=== PATIENT | male | born 1970 | race Caucasian/White ===

== ENCOUNTER 2018-10-19 21:14 | Emergency (ER) | payer SELFPAY ==
[2018-10-19] MEDS ORDERED: NS 0.9% 1000 ML* 1,000 ML IV ONE (22:03)
[2018-10-19] MEDS ORDERED: Aspirin 81 mg CHEW TAB* 81 MG TAB.CHEW PO ONE (22:03)
[2018-10-19] MEDS ORDERED: Famotidine TAB* 20 MG PO ONE (22:04)
--- NOTE | 2018-10-19 22:19 | ED ---
HPI Chest Pain - HPI Summary HPI Summary: Pt is a 48 y/o male who presents to the ED c/o chest pressure. He states the symptoms began at 12:00 today. Pt started with right-sided chest pressure, which then moved to the left. He now c/o sub-sternal chest pressure, rated a 5/ 10 in severity. Pt describes the sensation as if someone punched him in the chest. The pain is made better by ice and walking, and made worse by deep breaths. He also had some SOB and anxiety today, and notes that his right hand has been numb for the past few weeks. Pt smoked marijuana and had 2 beers [employer]. He took 2 Ibuprofen pills [employer], but denies taking ASA. He also notes he used ecstasy a few days ago. Pt denies any hx of DM, HTN, or HLD. Pts father had a CABG at 45 years old. - History of Current Complaint Chief Complaint: EDChestWallPain Time Seen by Provider: 10/19/18 21:53 Hx Obtained From: Patient Onset/Duration: Started Hours Ago - 12:00, Still Present Timing: Constant Current Severity: Moderate Pain Intensity: 5 Pain Scale Used: 0-10 Numeric Chest Pain Location: Mid Sternal Chest Pain Radiates: No Character: Pressure/Squeezing Aggravating Factor(s): Deep Breaths Alleviating Factor(s): Other: - Ice, walking Associated Signs and Symptoms: Positive: Anxiety, Shortness of Breath - Allergy/Home Medications Allergies/Adverse Reactions: Allergies Allergy/AdvReac Type Severity Reaction Status Date / Time shellfish derived Allergy Airway Verified 10/19/18 21:28 Obstruction PMH/Surg Hx/FS Hx/Imm Hx Endocrine/Hematology History: Denies: Hx Diabetes Cardiovascular History: Denies: Hx Hypercholesterolemia, Hx Hypertension Respiratory History: Reports: Hx Asthma Infectious Disease History: No Infectious Disease History: Denies: Traveled Outside the [place] in Last 30 Days - Family History Known Family History: Positive: Cardiac Disease - [place] - Social History Alcohol Use: Daily Alcohol Amount: 3-6 beers daily Hx Substance Use: Yes Substance Use Type: Reports: Marijuana Substance Use Comment - Amount & Last Used: psychedelics, ecstacy Hx Tobacco Use: Yes Smoking Status (MU): Former Smoker Review of Systems Positive: Chest Pain - pressure Positive: Shortness Of Breath Positive: Numbness - fingers Positive: Anxious All Other Systems Reviewed And Are Negative: Yes Physical Exam - Summary Physical Exam Summary: Appearance: Well appearing, no pain distress Skin: warm, dry, reflects adequate perfusion Head/face: normal Eyes: EOMI, PRABHA ENT: mucous membranes moist Neck: supple, non-tender Respiratory: CTA, breath sounds present Cardiovascular: RRR, pulses symmetrical Abdomen: non-tender, soft Bowel Sounds: present Musculoskeletal: normal, strength/ROM intact Neuro: normal, sensory motor intact, A&Ox3 Triage Information Reviewed: Yes Vital Signs On Initial Exam: Initial Vitals Temp Pulse Resp BP Pulse Ox 99.2 F 110 18 100/68 98 10/19/18 21:27 10/19/18 21:27 10/19/18 21:27 10/19/18 21:27 10/19/18 21:27 Vital Signs Reviewed: Yes Diagnostics - Vital Signs Vital Signs Temp Pulse Resp BP Pulse Ox 10/19/18 21:45 73 95 10/19/18 21:27 99.2 F 110 18 100/68 98 - Laboratory Result Diagrams: 10/19/18 22:08 10/19/18 22:08 Lab Statement: Any lab studies that have been ordered have been reviewed, and results considered in the medical decision making process. - Radiology CXR Radiology Interpretation Completed By: ED Physician Summary of Radiographic Findings: No acute findings. Pending official radiology report. - EKG 21:18 Cardiac Rate: NL - 88 bpm EKG Rhythm: Sinus Rhythm ST Segment: Normal Summary of EKG Findings: Nl axis, nl intervals Re-Evaluation - Re-Evaluation First Eval Re-Evaluation Time: 23:17 Change: Unchanged Comment: Pt feels the same. He feels anxious and requests Ativan. Chest Pain Course/Dx - Course Course Of Treatment: Nurse's notes reviewed. Patient with very atypical sounding chest pain and no particular risk factors for cardiac disease. EKG and troponin 2 was negative. Heart scores a 0. A d-dimer is nondetectable. He was treated with Toradol and Ativan finally which caused his symptoms to improve. He returns to [place] tomorrow by train and will follow-up with his primary care physician. - Chest Pain Differential Diagnosis/HQI/PQRI: Acute [place], ACS, CHF, Chest Wall, GI Disease, Pulmonary Embolism - Diagnoses Provider Diagnoses: Atypical chest pain, Cervical radiculopathy Discharge - Sign-Out/Discharge Documenting (check all that apply): Patient Departure - Discharge - Discharge Plan Condition: Improved Disposition: HOME Prescriptions: Cyclobenzaprine (NF) [Cyclobenzaprine 5 MG (NF)] 5 mg PO TID PRN #10 tab PRN Reason: muscle pains predniSONE TAB* [Deltasone TAB*] 50 mg PO DAILY #4 tab Patient Education Materials: Chest Pain (ED), Cervical Radiculopathy (ED) Referrals: [facility] [Outside] Additional Instructions: Follow up with your doctor on return to [place] tomorrow. Take a baby aspirin daily. You may need to have a stress test. Return with persistent symptoms, difficulty breathing, worse, new symptoms or other concerns. - Billing Disposition and Condition Condition: IMPROVED Disposition: Home - Attestation Statements Document Initiated by Juan: Yes Documenting Scribe: Joann Rothman Provider For Whom Juan is Documenting (Include Credential): Brando Vick MD Scribe Attestation: Joann Sargent scribed for Brando Vick MD on 10/20/18 at 0257. Scribe Documentation Reviewed: Yes Provider Attestation: The documentation as recorded by the Joann block accurately reflects the service I personally performed and the decisions made by Brando awan MD Status of Scribe Document: Viewed
[2018-10-19 22:23] LABS: ABS Basophils 0 10^3/ul (0-0.2); ABS Eosinophils 0.1 10^3/ul (0-0.6); ABS Monocytes 0.8 10^3/ul (0-0.8); ABS Nucleated RBC 0 10^3/ul; Eosinophil % 1.5 %; Hematocrit 41 % (42-52); Hemoglobin 13.9 g/dl (14.0-18.0); Lymphocyte % 28.9 %; Mean Corpuscular HGB Conc 34 g/dl (31-36); Mean Corpuscular Hemoglobin 30 pg (27-31); Mean Corpuscular Volume 87 fL (80-94); Mean Platelet Volume 7.9 fL (7.4-10.4); Nucleated Red Blood Cells % 0; Platelet Count 208 10^3/ul (150-450); Red Blood Count 4.69 10^6/ul (4.00-5.40); Red Cell Distribution Width 13 % (10.5-15)
[2018-10-19] MEDS ORDERED: Nitroglycerin TAB 0.4 MG* 0.4 MG TAB SL ONE (22:31)
[2018-10-19 22:40] LABS: Albumin 3.8 g/dL (3.2-5.2); Albumin/Globulin Ratio 1.5 (1-3); BUN/Creatinine Ratio 15.9 (8-20); Globulin 2.5 g/dL (2-4); Potassium 4.2 mmol/L (3.5-5.0); Total Bilirubin 0.3 mg/dL (0.2-1.0); Total Protein 6.3 g/dL (6.4-8.9)
[2018-10-19] MEDS ORDERED: Ketorolac INJ* 30 MG/ML 1 ML VIAL IV PUSH ONE (23:19)
[2018-10-19] MEDS ORDERED: LORazepam INJ* 2 MG/ML 1 ML VIAL IV PUSH ONE (23:19)
[2018-10-20 01:02] VITALS: BP 111/81
== END 2018-10-20 01:45 | disposition home or self-care (01) ==
LOC: ED 21:14
DX: R07.89 Other chest pain (principal); M54.12 Radiculopathy, cervical region; R06.02 Shortness of breath; F41.9 Anxiety disorder, unspecified; Z91.013 Allergy to seafood; Z82.49 Family history of ischemic heart disease and other diseases of the circulatory system; Z87.891 Personal history of nicotine dependence
CPT/HCPCS: 36415; 71045; 80053; 82550; 83605; 84484; 85025; 85379; 85610; 93005; 96374; 96375; 99283; A9270-GY; J1885; J2060